=== PATIENT | male | born 1980 | race Two or more races ===

== ENCOUNTER → 2024-11-17 | Outpatient (CLI) | payer OTHER, SELFPAY ==
[2024-11-17 12:39] LABS: Hepatitis B Surface Ab NonReact(Not Immune) (Immune); Hepatitis B Surface Antigen Non Reactive (Non React)
[2024-11-17 15:40] LABS: HIV (1&2) Antibody Rapid Non-Reactive
== END | disposition home or self-care (01) ==
PROVIDERS: Referring Provider Specialist; Visit Provider Family Medicine
DX: Z77.21 Contact with and (suspected) exposure to potentially hazardous body fluids (principal)
CPT/HCPCS: 36415; 86703; 86706; 87340; 87522

== ENCOUNTER → 2024-11-26 | Outpatient (CLI) | payer OTHER, SELFPAY ==
[2024-11-28 17:51] LABS: HCV RNA, PCR <15 NOT DETECTED IU/mL
[2024-12-01 07:18] LABS: HCV RNA, PCR Log IU <1.18 NOT DETECTED Log IU/mL
== END | disposition home or self-care (01) ==
LOC: COPL 11:01
PROVIDERS: Referring Provider Nurse Practitioner Family; Visit Provider Nurse Practitioner Family
DX: Z77.21 Contact with and (suspected) exposure to potentially hazardous body fluids (principal)
CPT/HCPCS: 36415; 87522

== ENCOUNTER → 2025-01-12 | Outpatient (CLI) | payer OTHER, SELFPAY ==
[2025-01-12 15:09] LABS: HIV (1&2) Antibody Rapid Non-Reactive
[2025-01-15 22:06] LABS: HCV RNA, PCR <15 NOT DETECTED IU/mL
[2025-01-16 06:45] LABS: HCV RNA, PCR Log IU <1.18 NOT DETECTED Log IU/mL; Hepatitis Be Antigen* NONREACTIVE
== END | disposition home or self-care (01) ==
LOC: COPL 11:43
PROVIDERS: Referring Provider Family Medicine; Visit Provider Family Medicine
DX: Z77.21 Contact with and (suspected) exposure to potentially hazardous body fluids (principal)
CPT/HCPCS: 36415; 86703; 87350; 87522

== ENCOUNTER → 2025-02-17 | Outpatient (CLI) | payer OTHER, SELFPAY ==
[2025-02-17 10:49] LABS: Hepatitis B Surface Antigen Non Reactive (Non React)
[2025-02-17 12:03] LABS: HIV (1&2) Antibody Rapid Non-Reactive
[2025-02-19 22:04] LABS: HCV RNA, PCR <15 NOT DETECTED IU/mL
[2025-02-23 07:08] LABS: HCV RNA, PCR Log IU <1.18 NOT DETECTED Log IU/mL
== END | disposition home or self-care (01) ==
LOC: COPL 08:44
PROVIDERS: Referring Provider Nurse Practitioner Family; Visit Provider Nurse Practitioner Family
DX: Z77.21 Contact with and (suspected) exposure to potentially hazardous body fluids (principal)
CPT/HCPCS: 36415; 86703; 87340; 87522